=== PATIENT | female | born 1935 | race Caucasian/White ===

== ENCOUNTER 2017-12-14 18:51 | Emergency (ER) | payer OTHER ==
[~2017-12-14] VITALS: Ht 154.9 cm; Wt 67.1 kg
[~2017-12-14 18:51] MED LIST: ATENOLOL50 MG; COZAAR100 MG
[2017-12-14] MEDS ORDERED: DONEPEZIL HCL23 MG (19:32)
== END 2017-12-14 21:21 | disposition home or self-care (01) ==
LOC: ER 18:51
DX: N39.0 Urinary tract infection, site not specified (principal)